=== PATIENT | male | born 1955 | race Caucasian/White ===

== ENCOUNTER 2019-07-07 20:33 | Inpatient (IN) | payer MEDICARE ==
[~2019-07-07] VITALS: Ht 170.2 cm; Wt 66.7 kg
[2019-07-07 20:58] VITALS: BP 147/58
[2019-07-07] MEDS ORDERED: MAGNESIUM HYDROXIDE 30 ML UDC PO PRN (21:00)
[2019-07-07] MEDS ORDERED: TEMAZEPAM 7.5 MG CAPSULE PO PRN (21:00)
[2019-07-07] MEDS ORDERED: MAG HYDROX/AL HYDROX/SIMETH 30 ML UDC PO PRN (21:00)
[2019-07-07] MEDS ORDERED: ACETAMINOPHEN 325 MG TABLET PO PRN (21:00)
[2019-07-07 21:45] VITALS: BP 125/63
[2019-07-07] MEDS ORDERED: BLOOD SUGAR DIAGNOSTIC 1 EACH STRIP IN ONE (22:00)
--- NOTE | 2019-07-07 22:30 | NUR ---
ADMISSION NOTES: ADMITTED THIS 64Y/O MALE PATIENT ADMIT FROM [facility] /INTIALLY FROM HOME , PT ADMITTED TO [facility] ON 515 GRAVELY DISABLE , PER HOLD. UNCOOPERATIVE , VERY AGGRESSIVE, INCREASED DELUSIONAL, WRITTEN ON THE WALL WITH HIS OWN FECES , CLIENT CURRENTLY SHOWING NO INSIGHT POOR JUDGEMENT , UNABLE TO CARE SELF ,UPON FACE TO FACE ASSESSMENT PATIENT IS A&O X ,1,2 , UNCOOPERTIVE, AGGRESSIVE, DISORGNIZED, ANXIOUS, FLAT AFFECT, PARNOID, DISHELVED ,EASILY GETS AGITATED,, PT. IS POOR HISTORIAN, POOR INSIGHT ,POOR JUDGEMENT , PT. REFUSED TO TAKE SHOWER AT THIS TIME , PT. REFUSED TO SIGNS ADMISSION CONSENT PAPERS , DUE TO MENTAL STATUS , PT. REFUSED FULL BODY SKIN ASSESSMENT, PER PT. MY SKIN IS FINE , PT. REFUSED TO CHECK INTIALLY BLOOD SUGAR, PER PT. I AM NOT DIABETIC, I DONT WANTS CHECK AT THIS TIME , ENCOURAGED, EXPLAINED RISKS AND BENEFITS STILL REFUSED, PT. V/S MD JAMIE AWARE AND NOTIFIED OF THE ADMISSION, BELONGINGS CONTRABAND WERE DONE , NURSING ASSESSMENT DONE ,PT. RIGHTS DISCUSS BY FORESTRY TREE PRUNER , PROVIDE THE PT. WITH HANDBOOK, AND MEDICATIONS GUIDE, ENVIRONMENTAL SAFETY CHECK DONE, ENCOURAGED PT. VERBALIZED ANY FEELING CONCERN TO STAFF, ORIENT TO UNIT POLICY, NO ACUTE DISTRESS NOTED,VITAL SIGNS WNL ,DENIES ANY PAIN AT THIS TIME ,WILL CONTINUE TO MONITOR FOR Q15 SAFETY AND BEHAVIOR.
--- NOTE | 2019-07-08 03:51 | NUR ---
RN NOTES: PT. REFUSED MRSA NARES SWAB, ENCOURAGED X 3 EXPLINED RISKS AND BENEFITS STILL REFUSED , PT. BEHAVIOR WAS UNCOOPERTIVE.
--- NOTE | 2019-07-08 07:06 | NUR ---
RN NOTES: MRSA NARES SWAB DONE , SEND OUT TO LABS.
--- NOTE | 2019-07-08 07:07 | NUR ---
RN NOTES ; PT. REFUSED AM LABS ENCOURAGED X 3 , EXPLAINED RISKS AND BENEFITS ,STILL REFUSED ,
[2019-07-08] MEDS ORDERED: METO50TA16 PO (08:34)
[2019-07-08] MEDS ORDERED: ESZO3TAB27 PO (08:34)
[2019-07-08] MEDS ORDERED: DOCU-141 PO (08:34)
[2019-07-08] MEDS ORDERED: FERR325T23 PO (08:34)
[2019-07-08] MEDS ORDERED: DIVALPROEX SODIUM 250 MG TABLET.DR PO SCH (13:00)
[2019-07-08] MEDS ORDERED: Medication Not On Formulary EA (Eszopiclone (Lunesta) 3 MG) PO SCH (14:30)
--- NOTE | 2019-07-08 14:43 | NUR ---
PT. REFUSED LABS FOR THE SECOND TIMES
[2019-07-08] MEDS: FERROUS SULFATE (325 MG) 325 MG/TAB TABLET PO SCH (14:51)
[2019-07-08] MEDS: METOPROLOL TARTRATE 50 MG TABLET PO SCH (14:51)
--- NOTE | 2019-07-08 16:07 | NUR ---
PT. KEEPS CALLING DIETARY AND CALLING POLICE WITH OTHER PATIENT. MADE AWARE AND ORDERED MAY USE PHONE WITH STAFF SUPERVISION.
[2019-07-08] MEDS ORDERED: HALOPERIDOL LACTATE INJ 5 MG/ML VIAL IM ONE (16:30)
[2019-07-08] MEDS ORDERED: diphenhydrAMINE HCL 50 MG/ML VIAL IM ONE (16:30)
[2019-07-08] MEDS ORDERED: LORAZEPAM INJ 2 MG/ML VIAL IM ONE (16:30)
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
--- NOTE | 2019-07-08 16:53 | NUR ---
AT 1635 PT. RELEASED FROM 4 4 POINT RESTRAINTS.
--- NOTE | 2019-07-08 18:22 | NUR ---
PT. IS AWAKE AND ATE DINNER IN ROOM. CALM AND COOPERATIVE, NO SIGN OF DISTRESS AND NO AGITATION NOTED. V/S TAKEN: BP 132/55, IN 87, RR 18 AND OXYGEN SAY 97%.
[2019-07-08 20:08] VITALS: BP 131/65
[2019-07-08] MEDS: clonazePAM 0.5 MG TABLET PO PRN (21:40)
[2019-07-08] MEDS ORDERED: QUETIAPINE FUMARATE 100 MG TABLET PO SCH (22:00)
[2019-07-08] MEDS ORDERED: OLANZAPINE 5 MG/TAB.RAPDIS PO SCH (22:00)
--- NOTE | 2019-07-08 22:50 | NUR ---
[facility]-RN PATIENT REFUSED SCHEDULED SEROQUEL FOR TONIGHT. EXPLAINED THE RISKS AND BENEFITS BUT PATIENT STILL REFUSED.
[2019-07-09] MEDS: clonazePAM 0.5 MG TABLET PO PRN ×2 (02:15→06:22)
--- NOTE | 2019-07-09 06:23 | NUR ---
[facility]PS-RN PATIENT IS VERY INTRUSIVE, ARGUMENTATIVE, DEMANDING, NEEDY, HYPERVERBAL, AGGRESSIVE, PATIENT VERY CONFRONTAL TOWARD STAFF. PATIENT TOOK OFF THE MENTAL HEALTH PATIENT'S RIGHTS POSTED ON THE WALL. REDIRECTED PATIENT'S BEHAVIOR. KLONOPIN GIVEN ORDERED. WILL CONTINUE TO MONITOR PATIENT'S SAFETY AND BEHAVIOR.
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
[2019-07-09] MEDS: FERROUS SULFATE (325 MG) 325 MG/TAB TABLET PO SCH (07:48)
[2019-07-09] MEDS: METOPROLOL TARTRATE 50 MG TABLET PO SCH (07:50)
[2019-07-09 08:00] VITALS: BP 140/74
[2019-07-09] MEDS: DOCUSATE SODIUM 100 MG CAPSULE PO SCH (08:21)
[2019-07-09] MEDS: clonazePAM 1 MG TABLET PO SCH ×3 (08:58→15:37)
--- NOTE | 2019-07-09 09:00 | NUR ---
Patient refused medication. Says he needs his Doctor because he was drug free for 17 years and his psychiatric MD is Doctor Post on the [facility] and he is on many medications he is not able to says which ones. Charge Nurse notified. Alexander Vilchis RN
--- NOTE | 2019-07-09 11:30 | NUR ---
Patient frequently combative, argumentative with staff. Calling outside phone numbers. Unit has received return feedback the patient has been calling other parts of the hospital and keeps calling. Patient refuses to take medication at this time. Wants reassurance, when reassurance is given patient refuses to believe environmental field team member providing the information. Says he has a son who is his power of assistant city attorney and works in real estate housing homeless population in [facility]. Wants to discuss his medication with MD prior to taking prescribed medication for symptoms out of control. Alexander Vilchis RN
[2019-07-09] MEDS: DIVALPROEX SODIUM 125 MG CAP.SPRINK PO SCH ×2 (15:00→15:37)
[2019-07-09 15:32] LABS: BASOPHILS # (AUTO) 0.1 /CMM (0.0-0.2); BASOPHILS % (AUTO) 1.8 % (0.0-2.0); EOSINOPHILS % (AUTO) 4.1 % (0.0-6.0); HEMATOCRIT 32 % (39-51); HEMOGLOBIN 10.1 g/dL (13.5-17.5); LYMPHOCYTES # (AUTO) 1.5 /CMM (0.8-4.8); LYMPHOCYTES % (AUTO) 26.8 % (20.0-44.0); MEAN CORPUSCULAR HGB CONC 32 g/dl (31.0-36.0); MEAN CORPUSCULAR VOLUME 77 fL (80-96); MONOCYTES # (AUTO) 0.7 /CMM (0.1-1.30); MONOCYTES % (AUTO) 12.2 % (2.0-12.0); NEUTROPHILS # (AUTO) 3.1 /CMM (1.8-8.9); NEUTROPHILS % (AUTO) 55.1 % (43.0-81.0); PLATELET COUNT (AUTO) 294 /CMM (150-450); RED BLOOD CELL COUNT(AUTO) 4.15 MIL/uL (4.5-6.0); WHITE BLOOD COUNT (AUTO) 5.6 K/uL (4.3-11.0)
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
[2019-07-09 15:44] LABS: CALCIUM, SERUM 8.4 mg/dL (8.5-10.1); POTASSIUM 3.8 mmol/L (3.5-5.1)
[2019-07-09 16:00] VITALS: BP 146/82
[2019-07-09 19:53] VITALS: BP 146/77
[2019-07-09 20:00] VITALS: BP 146/77
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
[2019-07-09] MEDS ORDERED: diphenhydrAMINE HCL 50 MG/ML VIAL IM ONE (20:30)
[2019-07-09] MEDS ORDERED: HALOPERIDOL LACTATE INJ 5 MG/ML VIAL IM ONE (20:30)
[2019-07-09] MEDS ORDERED: LORAZEPAM INJ 2 MG/ML VIAL IM ONE (20:30)
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
--- NOTE | 2019-07-09 21:30 | NUR ---
[facility]PS/RN NOTE: AT 2109 PATIENT WAS PACING BACK AND FORTH AROUND THE UNIT NAKED
--- NOTE | 2019-07-09 21:31 | NUR ---
GPS/RN NOTE: AT 2124, PATIENT WAS RESTING QUIETLY IN BED, SLEEPING, NO APPARENT DISTRESS NOTED.
[2019-07-09] MEDS: OLANZAPINE 5 MG/TAB.RAPDIS PO SCH (22:00)
--- NOTE | 2019-07-09 22:12 | NUR ---
GPS RN NOTE: AT 2215, PT IN BED, SLEEPING, NO APPARENT DISTRESS NOTED. WILL CONTINUE TO MONITOR.
--- NOTE | 2019-07-09 22:17 | NUR ---
OLANZAPINE 5MG TAB PO 1 NOT ADMINISTERED, PT ASLEEP MEDICATED WITH ATIVAN, HALDOL, AND BENADRYL ALL IM X1 AT 2049
--- NOTE | 2019-07-10 06:33 | NUR ---
[facility] RN NOTES: PT SLEPT FOR 6 HOURS. NO S/S OF PAIN OR DISTRESS. BREATHING EVEN AND UNLABORED. CONTINUE TO MONITOR.
[2019-07-10] MEDS: METOPROLOL TARTRATE 50 MG TABLET PO SCH (07:53)
[2019-07-10] MEDS: clonazePAM 1 MG TABLET PO SCH ×3 (07:53→17:00)
[2019-07-10 08:00] VITALS: BP 160/95
[2019-07-10] MEDS: DIVALPROEX SODIUM 125 MG CAP.SPRINK PO SCH ×3 (08:04→17:00)
[2019-07-10] MEDS: FERROUS SULFATE (325 MG) 325 MG/TAB TABLET PO SCH (08:04)
[2019-07-10] MEDS: DOCUSATE SODIUM 100 MG CAPSULE PO SCH (08:04)
[2019-07-10] MEDS: OLANZAPINE 5 MG/TAB.RAPDIS PO SCH ×2 (08:04→21:28)
[2019-07-10 16:00] VITALS: BP 159/77
--- NOTE | 2019-07-10 16:05 | NUR ---
Family Contact: SW called the pts brother and payee, Chandler ([phone]), and left a voicemail that informed him that the SW would like to discuss the pts treatment plan and initial discharge plan.
--- NOTE | 2019-07-10 16:16 | NUR ---
Initial Discharge Plan: Pt currently lives alone in his home located at [address] [place] [address]. Per pt, he would like to return to his home. LEIF will work with the pt and the MD regarding appropriate discharge planning. SW will form a safe and proper discharge plan.
--- NOTE | 2019-07-10 16:17 | NUR ---
SW called Sabrina ([phone]), Mobile Studio Operations Manager, and she stated that the pt is a cite and release meaning that he is not on parole or probation and that he can be discharged to a safe location for the pt.
[2019-07-10 20:20] VITALS: BP 132/59
--- NOTE | 2019-07-10 21:29 | NUR ---
RN NOTES: PT. REFUSED OLANZAPINE 5MG TAB PO , ENCOURAGED X3 EXPLAINED RISKS , BENEFITS ,STILL STRONGLY REFUSED , PT. BEHAVIOR VERY UNCOOPERATIVE .
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
[2019-07-11] MEDS ORDERED: OLANZAPINE 10 MG VIAL IM ONE (05:30)
[2019-07-11] MEDS ORDERED: diphenhydrAMINE HCL 50 MG/ML VIAL IM ONE (05:30)
[2019-07-11] MEDS ORDERED: LORAZEPAM INJ 2 MG/ML VIAL IM ONE (05:30)
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
--- NOTE | 2019-07-11 06:59 | NUR ---
RN NOTES; PT. RESTING HIS ROOM , COOPERATIVE AT THIS TIME ,IM TOLERATING WELL, NO ACUTE DISTRESS NOTED , VITAL SIGNS IN IN WNL , SEE VITAL SIGNS SHORT FORM , WILL CONTINUITY WITH CARE
[2019-07-11 08:00] VITALS: BP 131/88
[2019-07-11] MEDS: FERROUS SULFATE (325 MG) 325 MG/TAB TABLET PO SCH (08:04)
[2019-07-11] MEDS: METOPROLOL TARTRATE 50 MG TABLET PO SCH (08:05)
[2019-07-11] MEDS: DOCUSATE SODIUM 100 MG CAPSULE PO SCH (08:12)
[2019-07-11] MEDS: DIVALPROEX SODIUM 125 MG CAP.SPRINK PO SCH ×4 (09:00→16:56)
[2019-07-11] MEDS: OLANZAPINE 5 MG/TAB.RAPDIS PO SCH ×2 (09:00→21:33)
[2019-07-11] MEDS: clonazePAM 1 MG TABLET PO SCH ×4 (09:00→16:56)
[2019-07-11] MEDS: clonazePAM 0.5 MG TABLET PO PRN (11:04)
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
--- NOTE | 2019-07-11 13:49 | NUR ---
Family Contact: SW called the pt's son, Chris ([phone]), who informed the SW that the pt is currently homeless and does not have any property. He stated that the pts brother is the Social Security payee who has access to the pts funds. It was stated that a few weeks ago the pt was highly depressed and was unable to move and now he is currently in a manic state. SW stated that she will work with the MD regarding appropriate discharge planning and will keep the family members updated.
--- NOTE | 2019-07-11 13:49 | NUR ---
Family Contact: SW called the pts brother and payee, Chandler ([phone]), and left a voicemail that informed him that the SW would like to discuss the pts treatment plan and initial discharge plan.
[2019-07-11 16:00] VITALS: BP 127/87
[2019-07-11 20:00] VITALS: BP 105/49
[2019-07-11 20:10] VITALS: BP 105/49
--- NOTE | 2019-07-11 21:34 | NUR ---
GPS RN notes Pt refused Zyprexa 5 mg/1 tab/PO. Made aware benefits and risks. Pt keep refusing and very argumentative. Pt stated " I took medication at 6 pm and They are trying to double dose me." Charge nurse EUGENIO Escalona is aware and informed. Will continue to monitor q 15 mins checks.
--- NOTE | 2019-07-11 23:11 | NUR ---
[facility] RN notes Pt is complaining of wanting to have C-Pap machine. Pt is very argumentative, loud and hyperverbal. VS is stable. No S/S of distress noted. Informed RT and RT can't install C-Pap machine at [facility]. Pt does not have C-Pap machine with him. Charge nurse EUGENIO Escalona is aware and informed. Nursing insurance office supervisor is aware, informed and still looking for 1:1 sitter for Pt. Will continue to monitor q 15 mins checks.
--- NOTE | 2019-07-12 00:22 | NUR ---
[facility]PS RN notes Pt is sleeping in bed comfortably. Respiration is normal. No SOB. No S/S of distress noted. Will continue to monitor Q 15 mins check.
--- NOTE | 2019-07-12 01:15 | NUR ---
GPS RN notes Pt put both bedside tables, trash container, and a chair behind Pt's door. Pt starts pulling emergency alarm from the bed. When the staff went to the room, the staff can't get into the room because something blocking the door. The staff removed both bedside tables, trash container and a chair from Pt's room. Informed Pt and redirecting Pt to not blocking the door. Pt is very argumentative, loud and no directing, and threating the staff. Charge nurse is aware and informed. Will continue to monitor Q 15 mins check.
--- NOTE | 2019-07-12 01:23 | NUR ---
GPS RN notes Pt is very combative, arguing with staffs, non directing, threating staffs, loud and non cooperative with staffs. Pt is complaining of wanting to have C-Pap machine. VS is stable. No SOB. No S/S of distress noted. Charge nurse is aware and informed. Dr. Nunez is informed and aware. Charge nurse contacted at 0105. Received orders from for Zyprexa 5 IM, Ativan Inj 2 mg, Benadryl Inj 25 mg. Will continue to monitor.
[2019-07-12] MEDS ORDERED: LORAZEPAM INJ 2 MG/ML VIAL IM ONE ×2 (01:30→04:30)
[2019-07-12] MEDS ORDERED: diphenhydrAMINE HCL 50 MG/ML VIAL IM ONE ×2 (01:30→04:30)
[2019-07-12] MEDS ORDERED: OLANZAPINE 10 MG VIAL IM ONE ×2 (01:30→04:30)
--- NOTE | 2019-07-12 04:54 | NUR ---
GPS RN notes Did not administered Zyprexa, Ativan and benadryl earlier because Pt was asleep. Pt woke up and acting out, verbally abusive, non compliant, loud, uncooperative, and combative. Reality orientation is done. Pt still verbally abusive toward staffs. Explanation, and redirection attempted but Pt still uncooperative, hard to redirect, argumentative, loud, irritable, provocative, sarcastic and intrusive. Charge nurse notified DR. Nunez with order received. Prudencio davis called at [phone]. Administered Zyprexa IM, Benadryl IM, and Ativan IM as ordered. Will continue to monitor Q 15 mins check.
[2019-07-12 08:00] VITALS: BP 131/75
[2019-07-12] MEDS: OLANZAPINE 5 MG/TAB.RAPDIS PO SCH ×2 (09:00→21:53)
[2019-07-12] MEDS: DOCUSATE SODIUM 100 MG CAPSULE PO SCH ×2 (09:00→21:54)
[2019-07-12] MEDS: DIVALPROEX SODIUM 125 MG CAP.SPRINK PO SCH ×3 (09:00→16:35)
[2019-07-12] MEDS: clonazePAM 1 MG TABLET PO SCH ×3 (09:05→16:36)
[2019-07-12] MEDS: FERROUS SULFATE (325 MG) 325 MG/TAB TABLET PO SCH (09:05)
[2019-07-12] MEDS: METOPROLOL TARTRATE 50 MG TABLET PO SCH (09:06)
--- NOTE | 2019-07-12 10:59 | NUR ---
Family Contact: SW called the pts brother and payee, Chandler ([phone]), and left a voicemail that informed him that the SW would like to discuss the pts treatment plan and initial discharge plan.
--- NOTE | 2019-07-12 12:35 | NUR ---
Family Contact: Chandler ([phone]), pts brother, called the SW and stated that the pt is manic depressive and homeless but he does have funds that are in an account that cannot be accessed at this time because the pt lost his ID. SW informed him that the pt is unstable and is non compliant with his treatment and therefore the pt is going to have a Riese hearing. SW stated that she will inform keep him informed with the discharge planning.
[2019-07-12 16:00] VITALS: BP 129/72
--- NOTE | 2019-07-12 21:53 | NUR ---
RESTUARANT CREW WORKER NOTES PT WOKE UP AND SEEN WALKING IN A HALLWAY ASKING FOR HIS MEDICINE COLACE . ZYPREXA ALSO GIVEN ORDERED WELL HIS COLACE. NO SIGNS OF ANY AGITATION AT THIS TIME. INTERACT APPROPRIATELY. SNACKS ALSO SERVED. WILL CONTINUE MONITORING.
--- NOTE | 2019-07-13 | NUR ---
DREDGE PIPE OPERATOR NOTES SLEEPING COMFORTABLY IN BED WITHOUT ANY DISTRESS NOTED. WILL CONTINUE MONITORING.
--- NOTE | 2019-07-13 05:37 | NUR ---
PLATE MILL MILL HAND NOTES PT WOKE UP AND ASKING FOR SOME OF THE LINENS TO CHANGED HIS BEDDINGS BUT REFUSED TO HELPED HIM HE STATED HE'S OK . HE DID HIS OWN MORNING CARE AND ASKING SOMETHING TO EAT. OFFERED SOME APPLE SAUCE AND CRACKERS . NO SIGNS OF AGITATION NOTED AT THIS TIME. FOLLOWED SIMPLE INSTRUCTIONS . WILL CONTINUE MONITORING.
[2019-07-13 08:00] VITALS: BP 127/70
[2019-07-13 08:52] VITALS: BP 127/70
[2019-07-13] MEDS: METOPROLOL TARTRATE 50 MG TABLET PO SCH (08:52)
[2019-07-13] MEDS: OLANZAPINE 5 MG/TAB.RAPDIS PO SCH (08:52)
[2019-07-13] MEDS: clonazePAM 1 MG TABLET PO SCH ×2 (08:53→12:24)
[2019-07-13] MEDS: FERROUS SULFATE (325 MG) 325 MG/TAB TABLET PO SCH (08:53)
[2019-07-13] MEDS: DIVALPROEX SODIUM 125 MG CAP.SPRINK PO SCH ×2 (08:54→12:24)
--- NOTE | 2019-07-13 12:36 | NUR ---
RN NOTE: PATIENT IS VERY INTRUSIVE, DEMANDING AND ATTENTION SEEKING AND POSING THREATS TO MYSELF AND OTHER STAFF MEMBERS ON THE UNIT.
--- NOTE | 2019-07-13 15:12 | NUR ---
Discharge Note: Pt is being discharged to [address] [place] [address] at 3:00PM via public transportation. Upon discharge, the pt appeared to be in a euthymic mood and presented with a content effect. Pt denied both suicidal and homicidal ideation as well as auditory and visual hallucinations. The pt was provided with community resources, including the following housing and other basic needs services: [place] [id number] [place] [id number]; [phone]; [facility] [address] [place] [address]; [phone]; and the [facility] Homeless Resource Directory. Pt will be under the care of psychiatrist, Dr. Jnoes Address: [address], [place] [address]; . Pt will also be under the care of Medical Education Coordinator: Dr. Roberto Address: [address], [place] [address]; . Pts next of kin, son Chris ([phone]) and brother Chandler ([phone]), have been notified.
--- NOTE | 2019-07-13 15:30 | NUR ---
[facility]PS RN-NOTES PATIENT REQUESTING FLU VACCINE PRIOR TO DISCHARGE.
[2019-07-13] MEDS ORDERED: INFLUENZA VACCINE 2019-20 0.5 ML DISP.SYRIN IM ONE (16:00)
[2019-07-13] MEDS ORDERED: PNEUMOCOCCAL 23-VAL P-SAC VAC 0.5 ML VIAL SQ ONE (16:30)
--- NOTE | 2019-07-13 17:43 | NUR ---
WALLPAPER HANGER HELPER NOTE: PATIENT IS A 64 YEAR OLD MALE DISCHARGED TO HOME [address] [place] [address]. SON MARIZOL HAS BEEN NOTIFIED. PATIENT IS IN STABLE CONDITION. VSS. NO ACUTE DISTRESS NOTED. COMPLIANT WITH MEDICATION MANAGEMENT. COOPERATIVE WITH PLAN OF CARE. PSYCHIATRIC TREATMENT PLANS MET. MEDICAL TREATMENT PLANS DEFERRED FOR CONTINUAL MONITORING. DENIES SI/HI VAH AT THE TIME OF DISCHARGE. PATIENT REFUSED FULL BODY SKIN ASSESSMENT. EDUCATED PATIENT ABOUT AFTERCARE WITH COPY PROVIDED. RETURNED PERSONAL BELONGINGS TO PATIENT. MEDICATIONS RECONCILED WITH DR WOODS AND RICK ZAPIEN, MARYCARMEN ALONG WITH PSYCHIATRIC DISCHARGE ORDERS. DISCHARGE PAPERWORK SIGNED. FLU AND PNEUMO VACCINE CONSENTED AND ADMINISTERED. FOR FOLLOW UP WITH PSYCHIATRIST DR SANTORO [address] [facility] [id number] CAMPOS [address] [facility] [id number] . PATIENT LEFT [facility] AT 1643 VIA TAP CARD. INFORMATION PROVIDED ON DESTINATION.
== END 2019-07-13 16:43 | disposition home or self-care (01) | DRG 885 ==
LOC: GPS 20:33
PROVIDERS: ADMIT Psychiatry & Neurology Psychiatry; ATTEND Hospitalist
DX: F31.10 Bipolar disorder, current episode manic without psychotic features, unspecified (principal); F29 Unspecified psychosis not due to a substance or known physiological condition; F03.90 Unspecified dementia, unspecified severity, without behavioral disturbance, psychotic disturbance, mood disturbance, and anxiety; D50.9 Iron deficiency anemia, unspecified; F41.9 Anxiety disorder, unspecified; G47.30 Sleep apnea, unspecified
CPT/HCPCS: 36415; 80048-TC; 85025-TC; 87081-TC; 90732; 97116-TC; 97530-TC; J1200; J1630; J2060; J3490; Q2036